=== PATIENT | male | born 1965 | race African-American/Black ===

== ENCOUNTER 2020-10-31 12:43 | Emergency (ER) | payer OTHER | END 2020-10-31 13:23 | disposition home or self-care (01) | LOC: JVIRT 12:43 | DX: Z20.822 Contact with and (suspected) exposure to COVID-19 (principal) | CPT/HCPCS: C9803; G2012-GT; U0003 ==

== ENCOUNTER 2020-11-21 06:04 | Day surgery (SDC) | payer OTHER ==
[2020-11-14 11:12] VITALS: BMI 26.6
[2020-11-21] MEDS ORDERED: EPINEPHrine 1:1,000 1 MG/1 ML - 30ML VIAL (INJECTION) ONE (07:04)
[2020-11-21] MEDS ORDERED: BUPIVACAINE HCL/PF 2.5 MG/ML - 30 ML VIAL IJ ONE (07:21)
[2020-11-21] MEDS ORDERED: MIDAZOLAM HCL 2 MG/2 ML SINGLE DOSE VIAL ONE (07:22)
[2020-11-21] MEDS ORDERED: PROPOFOL 20 ML ONE (07:22)
[2020-11-21] MEDS ORDERED: ceFAZolin SODIUM 1 GM VIAL ONE (07:56)
[2020-11-21] MEDS ORDERED: DEXAMETHASONE SOD PHOSPHATE 4 MG/1 ML VIAL ONE (08:01)
[2020-11-21] MEDS ORDERED: ONDANSETRON 4 MG/2 ML VIAL ONE (08:01)
[2020-11-21] MEDS ORDERED: KETOROLAC TROMETHAMINE 30 MG/1 ML VIAL ONE (08:09)
[2020-11-21] MEDS ORDERED: ONDANSETRON 4 MG/2 ML VIAL IVPUSH PRN (08:26)
[2020-11-21] MEDS ORDERED: ACETAMINOPHEN 325 MG TABLET (FP) PO PRN (08:26)
[2020-11-21] MEDS ORDERED: oxyCODONE HCL 5 MG TABLET PO PRN (08:26)
[2020-11-21] MEDS ORDERED: LACTATED RINGERS SOLUTION 1,000 ML IV SCH (08:30)
[2020-11-21 08:35] VITALS: TEMP 98.2
[2020-11-21] MEDS ORDERED: ONDANSETRON 4 MG/2 ML VIAL IVPUSH ONE (09:11)
[2020-11-21 11:04] VITALS: BP 130/80; PULSE 64
== END 2020-11-21 10:40 | disposition home or self-care (01) ==
LOC: FASU 06:04
PROVIDERS: ATTEND Orthopaedic Surgery Sports Medicine
PROC: 0SBD4ZZ Excision of Left Knee Joint, Percutaneous Endoscopic Approach (ICD-10-PCS; principal; 2020-11-21 08:01)
DX: S83.242A Other tear of medial meniscus, current injury, left knee, initial encounter (principal); X58.XXXA Exposure to other specified factors, initial encounter; Y93.9 Activity, unspecified; Y92.9 Unspecified place or not applicable; Z88.0 Allergy status to penicillin; Z91.018 Allergy to other foods
CPT/HCPCS: 94760

== ENCOUNTER 2022-02-02 14:48 | Emergency (ER) | payer OTHER ==
[2022-02-02] MEDS ORDERED: NAPROXEN 500 MG TABLET PO ONE (15:03)
[2022-02-02] MEDS ORDERED: NAPROXEN 500 MG TABLET ONE (15:16)
[2022-02-02 15:21] VITALS: BP 123/76; PULSE 85; TEMP 97.9; BMI 26.4
== END 2022-02-02 15:54 | disposition home or self-care (01) ==
LOC: FER 14:48
DX: S93.602A Unspecified sprain of left foot, initial encounter (principal); X50.0XXA Overexertion from strenuous movement or load, initial encounter
CPT/HCPCS: 73610-TC-LT-FY; 73630-TC-LT; 99283-25

== ENCOUNTER 2023-01-25 04:41 | Day surgery (SDC) | payer OTHER ==
[2023-01-22 13:13] VITALS: BMI 26.6
[2023-01-25 09:59] VITALS: TEMP 97.8
[2023-01-25 10:42] VITALS: BP 113/58; PULSE 68; RESP 18
== END 2023-01-25 10:42 | disposition home or self-care (01) ==
LOC: JASU-ENDO 04:41
PROVIDERS: ATTEND Internal Medicine Gastroenterology
PROC: 0DJD8ZZ Inspection of Lower Intestinal Tract, Via Natural or Artificial Opening Endoscopic (ICD-10-PCS; principal; 2023-01-25 10:00)
DX: Z12.11 Encounter for screening for malignant neoplasm of colon (principal); Z86.010 Personal history of colon polyps; Z83.71 Family history of colonic polyps